=== PATIENT | female | born 1995 | race Caucasian/White ===

== ENCOUNTER 2017-01-07 19:28 | Emergency (ER) | payer BC ==
[2017-01-07 20:46] VITALS: BP 144/91; PULSE 77; TEMP 98.1; BMI 38.2
--- NOTE | 2017-01-07 21:30 | PDOC ---
History of Present Illness - General History Source: Patient Exam Limitations: No Limitations - History of Present Illness Initial Comments: 01/07/17 21:48 The patient is a 21 year old female accompanied by family member, with a significant past medical history of anxiety and depression, who presents to the emergency department with a superficial laceration to the right forearm earlier this evening. The patient reports she has a history of anxiety and depression, and inflicted harm on herself to the right forearm earlier today. The patient reports she sees a psychiatrist for her anxiety and depression. She presents with healed scars throughout her arm from previous superficial lacerations. 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 The patient reports her tetanus shot is up to date. The patient denies any cough, headache, fever, chills, or dizziness. The patient denies any hallucinations. Allergies: Penicillins Past Surgical History: None reported. Social History: Non-smoker. Denies alcohol or drug use. <Sole Mtz - Last Filed: 01/07/17 21:47> - General History Source: Patient <Hal Adame - Last Filed: 01/07/17 22:26> - General Chief Complaint: Laceration Stated Complaint: LACERATION Time Seen by Provider: 01/07/17 20:25 Past History <Sole Mtz - Last Filed: 01/07/17 21:47> - Past Medical History Psychiatric Problems: Yes (depression, anxiety) - Psycho/Social/Smoking Cessation Hx Suicidal Ideation: No Smoking History: Never smoked Number of Cigarettes Smoked Daily: 0 Information on smoking cessation initiated: No Hx Alcohol Use: No Drug/Substance Use Hx: No <Hal Adame - Last Filed: 01/07/17 22:26> - Past Medical History Allergies/Adverse Reactions: Allergies Allergy/AdvReac Type Severity Reaction Status Date / Time Penicillins Allergy Verified 01/07/17 20:26 Home Medications: Ambulatory Orders Bupropion HCl [Wellbutrin Sr] 150 mg PO DAILY 01/07/17 Amber Carbonate [Eskalith -] 150 mg PO HS 01/07/17 Paroxetine HCl [Paxil] 20 mg PO DAILY 01/07/17 Review of Systems - Review of Systems Able to Perform ROS?: Yes Comments:: 01/07/17 21:49 CONSTITUTIONAL: Absent: fever, no chills, no fatigue EYES: Absent: visual changes ENT: Absent: ear pain, no sore throat CARDIOVASCULAR: Absent: chest pain, no palpitations RESPIRATORY: Absent: cough, no SOB GI: Absent: abdominal pain, no nausea, no vomiting, no constipation, no diarrhea GENITOURINARY: Absent: dysuria, no frequency, no hematuria MUSKULOSKELETAL: Absent: back pain, no arthralgia, no myalgia SKIN: Present: +laceration to the right forearm Absent: rash NEURO: Absent: headache PSYCHIATRIC: Present: +anxiety, +depression Absent: suicidal or homicidal ideation, hallucinations. <Mtz,Cyndilisa - Last Filed: 01/07/17 21:47> *Physical Exam - Vital Signs Last Vital Signs Temp Pulse Resp BP Pulse Ox 98.1 F 77 14 144/91 96 01/07/17 20:28 01/07/17 20:28 01/07/17 20:28 01/07/17 20:28 01/07/17 20:28 - Physical Exam Comments: 01/07/17 21:49 GENERAL: Well-appearing, well-nourished. No apparent distress. HEENT: Normocephalic, atraumatic. PERRL, EOM intact. CARDIOVASCULAR: Normal S1, S2. Regular rate and rhythm. PULMONARY: Clear to auscultation bilaterally. ABDOMEN: Soft, non-distended, non-tender. EXTREMITIES: Normal ROM in all four extremities. No gross deformities. SKIN: Dorsal right forearm 3 cm superficial laceration. Warm, dry. No rash NEUROLOGICAL: No focal neurological deficits. PSYCHIATRIC: Cooperative. Good eye contact. Appropriate mood and affect. <Mtz,Cyndilisa - Last Filed: 01/07/17 21:47> - Vital Signs Last Vital Signs Temp Pulse Resp BP Pulse Ox 98.1 F 77 14 144/91 96 01/07/17 20:28 01/07/17 20:28 01/07/17 20:28 01/07/17 20:28 01/07/17 20:28 <Hal Adame - Last Filed: 01/07/17 22:26> Procedures - Laceration/Wound Repair Right Upper and Lower Dorsal Arm Wound Length: 2.6 to 5.0 cm Wound Explored: clean Wound's Depth, Shape: superficial Irrigated w/ Saline: Yes Betadine Prep: Yes Anesthesia: 1% Lidocaine Amount of Anesthetic (ccs): 5 Wound Debrided: minimal Suture Size/Type: 4:0 Number of Sutures: 6 <Hal Adame - Last Filed: 01/07/17 22:26> Medical Decision Making - Medical Decision Making 01/07/17 22:26 Dr. Adame: The scribe's documentation has been prepared under my direction and personally reviewed by me in its entirery. I confirm that the note above accurately reflects all work, treatment, procedures, and medical decision making performed by me. <Hal Adame - Last Filed: 01/07/17 22:26> *DC/Admit/Observation/Transfer - Attestations Scribe Attestion: 01/07/17 21:51 Documentation prepared by Sole Mtz, acting as medical device sales for Hal Adame DO. <Sole Mtz - Last Filed: 01/07/17 21:47> - Discharge Dispostion Admit: No <Hal Adame - Last Filed: 01/07/17 22:26> Diagnosis at time of Disposition: Laceration of right forearm Qualifiers: Encounter type: initial encounter Qualified Code(s): S51.811A - Laceration without foreign body of right forearm, initial encounter - Discharge Dispostion Disposition: HOME Condition at time of disposition: Stable - Patient Instructions Printed Discharge Instructions: DI for Laceration Repair Additional Instructions: please return in 10 days for suture removal. Keep wound clean and dry. daily with soap and water.
== END 2017-01-07 22:41 | disposition home or self-care (01) ==
LOC: JER 19:28
PROC: 0HQDXZZ Repair Right Lower Arm Skin, External Approach (ICD-10-PCS; principal; 2017-01-07)
DX: S51.811A Laceration without foreign body of right forearm, initial encounter (principal); X78.9XXA Intentional self-harm by unspecified sharp object, initial encounter; Y93.89 Activity, other specified; Y92.9 Unspecified place or not applicable; F41.8 Other specified anxiety disorders
CPT/HCPCS: 99282-25